=== PATIENT | female | born 2000 | race Two or more races ===

== ENCOUNTER 2022-01-18 18:46 | Inpatient (IN) | payer OTHER ==
[~2022-01-18] VITALS: Ht 160 cm; Wt 68.5 kg
== END 2022-01-20 14:29 | disposition home or self-care (01) | DRG 343 ==
LOC: ER 18:46 → SURG 01-19 01:44
PROVIDERS: ADMIT Surgery; ATTEND Surgery
PROC: BW21ZZZ Computerized Tomography (CT Scan) of Abdomen and Pelvis (ICD-10-PCS; 2022-01-18)
PROC: 0DTJ4ZZ Resection of Appendix, Percutaneous Endoscopic Approach (ICD-10-PCS; principal; 2022-01-19 08:45)
DX: K35.890 Other acute appendicitis without perforation or gangrene (principal); Z20.822 Contact with and (suspected) exposure to COVID-19